=== PATIENT | female | born 1995 | race Caucasian/White ===

== ENCOUNTER 2019-09-17 08:28 | Emergency (ER) | payer OTHER, SELFPAY ==
[2019-09-17 08:55] VITALS: BP 142/86; PULSE 104; RESP 18; TEMP 36.9; O2SAT 98
--- NOTE | 2019-09-17 09:44 | ED.FEMALEGU ---
HPI - Female Genitourinary General Chief complaint: Urogenital-Female Stated complaint: . Time Seen by Provider: 09/17/19 09:45 Source: patient Mode of arrival: ambulatory History of Present Illness HPI Narrative: Patient presents with a 3-day history of low back pain urinary frequency and urgency-patient denies any gross hematuria denies any abdominal pain denies any flank pain. Patient denies any vaginal discharge and denies any concern for STDs. MD elicited complaint: dysuria and UTI Related Data Allergies Allergy/AdvReac Type Severity Reaction Status Date / Time labetalol Allergy Unknown Rash Verified 09/17/19 09:38 Sulfa (Sulfonamide Allergy Unknown Rash Verified 09/17/19 09:38 Antibiotics) Review of Systems Review of Systems: Narrative: CONSTITUTIONAL: Denies fever, chills, or sweats. EYES: Denies visual changes, redness, or discharge. ENT: Denies rhinorrhea, congestion, sore throat, or otalgia. CARDIOVASCULAR: Denies chest pain, palpitations, or edema. RESPIRATORY: Denies cough or dyspnea. GASTROINTESTINAL: Denies abdominal pain, nausea, vomiting, or diarrhea. GENITOURINARY: Denies hematuria. SKIN: Denies rash or itching. MUSCULOSKELETAL: Denies back pain, joint pain, or myalgia. NEUROLOGIC: Denies headache, numbness, or weakness. PSYCHIATRIC: Denies anxiety or depression. All systems reviewed & are unremarkable except as noted in HPI and below PMFSH Comments At time of signature, agree with nursing past medical, surgical, social and family history. There is no relevant family history pertinent to the presenting complaint Exam Narrative: Exam Narrative: GENERAL: Well-appearing, well-nourished, and in no acute distress. HEAD: Normocephalic, atraumatic. EYES: PERRLA and EOMI. ENT: Nares clear, no rhinorrhea or epistaxis. Mucous membranes moist. NECK: Supple. CHEST: Clear to auscultation. No respiratory distress. HEART: Regular rate and rhythm. No murmur heard. Normal peripheral pulses. ABDOMEN: Soft, nontender, nondistended, normal active bowel sounds. EXTREMITIES: Normal range of motion. No edema. SKIN: Warm, dry, no rash. NEURO: No focal deficits. Alert and oriented x3. [place] Coma Scale Eye Opening: Spontaneous 4 [place] Coma Scale Motor: Obeys Commands 6 [place] Com[place] Scale Verbal: Oriented 5 [place] Com[place] Scale Total 15 Course Vital Signs Vital signs: Vital Signs Temperature 36.9 C 09/17/19 08:55 Pulse Rate 104 H 09/17/19 08:55 Respiratory Rate 18 09/17/19 08:55 Blood Pressure 142/86 H 09/17/19 08:55 Pulse Oximetry 98 09/17/19 08:55 Temperature 36.9 C 09/17/19 08:55 Pulse Rate 104 H 09/17/19 08:55 Respiratory Rate 18 09/17/19 08:55 Blood Pressure 142/86 H 09/17/19 08:55 Pulse Oximetry 98 09/17/19 08:55 Please KATHERINE schedule a followup visit with your personal physician for further evaluation and treatment. Including recheck and discussion of your blood pressure. If your symptoms persist, change or worsen significantly before you can contact your personal physician then please, without delay, go to the emergency department for further evaluation MDM - Female Genitourinary Lab Data Attestation: I reviewed the patient's lab results. Labs: Urine Glucose Negative Reference Range: Negative Urine Bilirubin Negative Reference Range: Negative Urine Ketone Negative Reference Range: Negative Urine Specific [place] 1.030 Reference Range:1.001-1.035 Urine Blood 2+ Reference Range: Negative * * Urine pH 5.5 Reference Range: 5.0-9.0 Urine Protein 1+ Reference Range: Negative Urine Urobilinogen 0.2 Reference Range: 0.2-1.0 Urine Nitrate Negative Reference Range: Negative Urine L
== END 2019-09-17 10:09 | disposition home or self-care (01) ==
PROVIDERS: Emergency Provider Nurse Practitioner Family
DX: N30.00 Acute cystitis without hematuria (principal)
CPT/HCPCS: 81003; 87077; 87086; 87088; 87186; 99213; G0463

== ENCOUNTER 2019-11-19 11:09 | Emergency (ER) | payer OTHER, SELFPAY ==
[2019-11-19 11:30] VITALS: BP 140/88; PULSE 95; RESP 18; TEMP 36.8; O2SAT 98
--- NOTE | 2019-11-19 11:56 | ED.URI ---
HPI - URI/Sore Throat General Chief Complaint: Upper Respiratory Infection Stated Complaint: sore throat Time Seen by Provider: 11/19/19 11:47 Source: patient and RN notes reviewed Mode of arrival: ambulatory Limitations: no limitations History of Present Illness HPI Narrative: Patient presents today complaint of a 3-day history of sore throat, itchy and watery eyes, postnasal drip, and sneezing. She currently rates her pain 3/10 and has been taking Tylenol and occasionally Benadryl with some relief. Reports she does have seasonal allergies and has been spending a lot of time outside recently. MD elicited complaint: sore throat Related Data Allergies Allergy/AdvReac Type Severity Reaction Status Date / Time labetalol Allergy Unknown Rash Verified 11/19/19 11:35 Sulfa (Sulfonamide Allergy Unknown Rash Verified 11/19/19 11:35 Antibiotics) Review of Systems Review of Systems: Narrative: CONSTITUTIONAL: Denies body aches, fever, chills, or sweats. EYES: Denies visual changes, redness, or discharge.Itchy, watery eyes ENT: Denies rhinorrhea, or otalgia.+Congestion, sore throat, postnasal drip CARDIOVASCULAR: Denies chest pain, palpitations, or edema. RESPIRATORY: Denies cough or dyspnea. GASTROINTESTINAL: Denies abdominal pain, nausea, vomiting, or diarrhea. GENITOURINARY: Denies dysuria or hematuria. SKIN: Denies rash, itching, or wounds. MUSCULOSKELETAL: Denies back pain, joint pain, or myalgia. NEUROLOGIC: Denies headache, numbness, tingling, or weakness. PSYCH: Denies depression or anxiety. PMFSH Comments At time of signature, I have reviewed and agree with nursing past medical, surgical, social and family history unless otherwise noted. Please see nursing chart for further information. There is no relevant family history pertinent to the presenting complaint Exam Narrative: Exam Narrative: GENERAL: Well-appearing, well-nourished, and in no acute distress. HEAD: Normocephalic, atraumatic. EYES: EOMI. No redness or drainage. Conjunctivae normal. ENT: Mucous membranes pink and moist. Nares clear. No rhinorrhea. TMs normal bilaterally. Throat Mildly erythematous with white exudate on the left tonsil. Uvula midline. NECK: Normal AROM. Supple. No lymphadenopathy. CHEST: No respiratory distress. Clear to auscultation. HEART: Regular rate and rhythm. No murmur appreciated. Normal peripheral pulses. EXTREMITIES: Normal range of motion. No edema. SKIN: Warm, dry, no rash. Capillary refill normal. Normal skin turgor. NEURO: No focal deficits. Alert and oriented x3. Gait steady. PSYCH: Normal affect. No signs of depression or anxiety. Course Vital Signs Vital signs: Vital Signs Temperature 98.2 F 11/19/19 11:30 Pulse Rate 95 11/19/19 11:30 Respiratory Rate 18 11/19/19 11:30 Blood Pressure 140/88 11/19/19 11:30 Pulse Oximetry 98 11/19/19 11:30 Temperature 98.2 F 11/19/19 11:30 Pulse Rate 95 11/19/19 11:30 Respiratory Rate 18 11/19/19 11:30 Blood Pressure 140/88 11/19/19 11:30 Pulse Oximetry 98 11/19/19 11:30 Reviewed. Pt has been instructed to follow up with her PCP regarding her elevated blood pressure today. MDM - URI/Sore Throat Differential Diagnosis Differential diagnosis: Likely upper respiratory infection, sinusitis, viral infection, pharyngitis and other (Allergic rhinitis, strep throat) Lab Data Attestation: I reviewed the patient's lab results. Labs: Strep Screen Presumptive Negative *(Reference Range: Negative)* Critical Care Time Critical Care Time Critical Care Time: No Discharge Plan Discharge Clinical Impression: Acute seasonal allergic rhinitis Pharyngitis Qualifiers: Pharyngitis/tonsillitis etiology: unspecified etiology Qualified Code(s): J02.9 - Acute pharyngitis, unspecified Patient Disposition: Home, Self-Care Condition: Stable Instructions: Allergic Rhinitis (DC), Allergies (ED) Additional Instructio
== END 2019-11-19 12:00 | disposition home or self-care (01) ==
PROVIDERS: Emergency Provider Nurse Practitioner; PCP Internal Medicine Infectious Disease
DX: J30.9 Allergic rhinitis, unspecified (principal)
CPT/HCPCS: 87081; 87880; 99213; G0463

== ENCOUNTER 2020-01-13 18:57 | Emergency (ER) | payer OTHER, SELFPAY ==
[2020-01-13 19:08] VITALS: BP 124/87; PULSE 82; RESP 14; TEMP 36.7; O2SAT 100
--- NOTE | 2020-01-13 19:09 | ED.DENTAL ---
HPI - Dental/Oral General Chief complaint: Dental/Oral Stated complaint: Jaw pain Time Seen by Provider: 01/13/20 19:09 Source: patient and RN notes reviewed History of Present Illness HPI Narrative: Patient is a 24-year-old female that presents the urgent care with complaints of bilateral jaw pain. Patient states that it started last week. Patient states she does have a chronic habit of doing a lot of chewy candy and gum. Patient states that she has tried to lay off and also been using Tylenol and ibuprofen for the pain. However patient states is been so bad the last couple days that she has having difficulty eating. No other acute complaints. Denies any known injury or trauma. No acute distress noted. Patient read the plan of care. Related Data Home Medications Medication Instructions Recorded Confirmed albuterol sulfate 2 puff INHALATION QID PRN 01/13/20 01/13/20 alprazolam 0.25 mg PO TID PRN 01/13/20 01/13/20 bupropion HCl 75 mg PO DAILY 01/13/20 01/13/20 valacyclovir 500 mg PO DAILY 01/13/20 01/13/20 Allergies Allergy/AdvReac Type Severity Reaction Status Date / Time labetalol Allergy Unknown Rash Verified 01/13/20 19:14 Sulfa (Sulfonamide Allergy Unknown Rash Verified 01/13/20 19:14 Antibiotics) Review of Systems Review of Systems: Narrative: CONSTITUTIONAL: Denies fever, chills, or sweats. EYES: Denies visual changes, redness, or discharge. ENT: Denies rhinorrhea, congestion, sore throat, or otalgia. Reports of bilateral jaw pain CARDIOVASCULAR: Denies chest pain, palpitations, or edema. RESPIRATORY: Denies cough or dyspnea. GASTROINTESTINAL: Denies abdominal pain, nausea, vomiting, or diarrhea. GENITOURINARY: Denies dysuria or hematuria. SKIN: Denies rash or itching. MUSCULOSKELETAL: Denies back pain, joint pain, or myalgia. NEUROLOGIC: Denies headache, numbness, or weakness. All other systems reviewed are negative, except as documented in HPI. PMFSH Comments At the time of my signature, I reviewed and agree with the nursing past medical, surgical, social, and family history. There is no relevant family history pertinent to the patient complaint. Exam Narrative: Exam Narrative: GENERAL: This is a well-nourished, well-developed patient, in no apparent distress. HEAD: normocephalic, atraumatic. EYES: PERRL. Sclera clear/white. Vision is grossly intact. EARS: External ears normal, auditory canals clear and without drainage, TMs normal without perforation. Hearing grossly intact. NOSE: External nose normal with no obvious nasal discharge, nares without redness, no rhinorrhea. THROAT: Mucous membranes moist, posterior pharynx clear. Moderate tenderness to bilateral TMJ joints with some slight snapping to the right and extreme discomfort with opening and closing NECK: Neck supple, non-tender without lymphadenopathy SKIN: warm, intact with no suspicious lesions or rash, good texture and turgor. NEURO: awake, alert, and oriented to person, place and time. There were no obvious focal neurologic abnormalities. EXTREMITIES: No clubbing, cyanosis, or edema. Course Vital Signs Vital signs: Vital Signs Temperature 98.0 F 01/13/20 19:08 Pulse Rate 82 01/13/20 19:08 Respiratory Rate 14 01/13/20 19:08 Blood Pressure 124/87 01/13/20 19:08 Pulse Oximetry 100 01/13/20 19:08 Temperature 98.0 F 01/13/20 19:08 Pulse Rate 82 01/13/20 19:08 Respiratory Rate 14 01/13/20 19:08 Blood Pressure 124/87 01/13/20 19:08 Pulse Oximetry 100 01/13/20 19:08 Reviewed MDM - Dental/Oral MDM Narrative Medical decision making narrative: Spoke to the patient regarding clenching and grinding at night. That may be what is causing her issues and she may have a mild to moderate case of TMJ. Patient may obtain an mouthguard [id number] to help with the clenching or grinding at night. Complete steroid regimen as prescribed to reduce inflammation in the joint. May use ice to the jaw for comfort. Use
== END 2020-01-13 19:32 | disposition home or self-care (01) ==
PROVIDERS: Emergency Provider Nurse Practitioner Family; PCP Internal Medicine Infectious Disease
DX: M26.603 Bilateral temporomandibular joint disorder, unspecified (principal); J45.909 Unspecified asthma, uncomplicated; F41.9 Anxiety disorder, unspecified; F32.9 Major depressive disorder, single episode, unspecified
CPT/HCPCS: 99213; G0463

== ENCOUNTER 2020-03-11 17:55 | Emergency (ER) | payer OTHER, SELFPAY ==
[2020-03-11 18:00] VITALS: BP 132/79; PULSE 97; RESP 18; TEMP 37.8; O2SAT 99
--- NOTE | 2020-03-11 18:08 | ED.GENADULT ---
HPI - General Adult General Chief complaint: Upper Respiratory Infection Stated complaint: sore throat Time Seen by Provider: 03/11/20 18:13 Source: patient and RN notes reviewed Mode of arrival: ambulatory Limitations: no limitations History of Present Illness HPI narrative: This is a 24 years old female presents to the office for an evaluation of sore throat today. Associated with stuffy nose. Denies fever. 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 She took ibuprofen about a couple hours ago. Related Data Home Medications Medication Instructions Recorded Confirmed bupropion HCl 75 mg PO DAILY 01/13/20 01/13/20 valacyclovir 500 mg PO DAILY 01/13/20 01/13/20 Allergies Allergy/AdvReac Type Severity Reaction Status Date / Time labetalol Allergy Unknown Rash Verified 03/11/20 18:15 Sulfa (Sulfonamide Allergy Unknown Rash Verified 03/11/20 18:15 Antibiotics) Review of Systems Review of Systems: Narrative: CONSTITUTIONAL: Denies fever, chills, sweats. EYES: Denies visual changes, redness, discharge. ENT: Denies rhinorrhea, congestion,otalgia. CARDIOVASCULAR: Denies chest pain, palpitation, edema. RESPIRATORY: Denies dyspnea, wheezing, cough GASTROINTESTINAL: Denies abdominal pain, nausea, vomiting, diarrhea. SKIN: Denies rash MUSCULOSKELETAL: Denies acute back pain NEUROLOGIC: Denies lightheaded All other systems reviewed are negative, except as documented in HPI. [facility] Past Medical History Medical History (Updated 03/11/20 @ 18:30 by JAHAIRA Hess) Anxiety and depression Asthma Herpes simplex Comments At time of signature, I agree with nursing past medical, surgical, social and family history. There is no relevant family history pertinent to the presenting complaint. Exam Narrative: Exam Narrative: GENERAL: This is a well-nourished, well-developed patient, in no apparent distress. EARS: External ears normal, auditory canals clear and without drainage, TMs normal without perforation. Hearing grossly intact. NOSE: External nose normal with no obvious nasal discharge, nares without redness, no rhinorrhea. THROAT: Mucous membranes moist, posterior pharynx normal. NECK: Neck supple, non-tender without lymphadenopathy, masses or thyromegaly. CARDIOVASCULAR: Regular rate and rhythm without murmurs, gallops, or rubs. RESPIRATORY: Clear to auscultation. Breath sounds equal bilaterally. No wheezes, rales, or rhonchi. GASTROINTESTINAL: Abdomen soft, non-tender, nondistended. Bowel sounds are active. No hepato-splenomegaly, or palpable masses. No guarding. SKIN: warm, intact with no suspicious lesions or rash, good texture and turgor. NEURO: awake, alert, and oriented to person, place and time. There were no obvious focal neurologic abnormalities. Steady gait [place] Coma Scale Eye Opening: Spontaneous 4 [place] Coma Scale Motor: Obeys Commands 6 [place] Coma Scale Verbal: Oriented 5 Course Vital Signs Vital signs: Vital Signs Temperature 100.0 F H 03/11/20 18:00 Pulse Rate 97 03/11/20 18:00 Respiratory Rate 18 03/11/20 18:00 Blood Pressure 132/79 03/11/20 18:00 Pulse Oximetry 99 03/11/20 18:00 Temperature 100.0 F H 03/11/20 18:00 Pulse Rate 97 03/11/20 18:00 Respiratory Rate 18 03/11/20 18:00 Blood Pressure 132/79 03/11/20 18:00 Pulse Oximetry 99 03/11/20 18:00 Medical Decision Making MDM Narrative Medical decision making narrative: I reviewed 1st strep test result with the patient which was negative. Patient claims that the nurse did not swap throat well and request a second test; which I swap her again. Second rapid strep is still negative; I reviewed patient. Discharge instructions reviewed with patient, as well as provided in writing per nursing staff. The instructions also include specific and strict return/GO TO THE ER as well as f/u information. All questions have been answered, and the patient deny any further questions with discharge an
== END 2020-03-11 18:48 | disposition home or self-care (01) ==
PROVIDERS: Emergency Provider Nurse Practitioner; PCP Internal Medicine Infectious Disease
DX: J02.9 Acute pharyngitis, unspecified (principal); J45.909 Unspecified asthma, uncomplicated; F32.9 Major depressive disorder, single episode, unspecified
CPT/HCPCS: 87081; 87880; 99213; G0463

== ENCOUNTER 2020-04-28 14:02 | Emergency (ER) | payer OTHER, SELFPAY ==
--- NOTE | 2020-04-28 14:08 | ED.GENADULT ---
HPI - General Adult General Chief complaint: Ear Stated complaint: jaw pain popping ears Time Seen by Provider: 04/28/20 14:20 Source: patient Mode of arrival: ambulatory Limitations: no limitations History of Present Illness HPI narrative: 24-year-old female patient presents to the [facility] with complaints of right-sided jaw pain. Patient states that the jaw pain started this morning. Patient states she has had this jaw pain before in the past and she associated with possibly a side effect of her depression medication. Patient states after she went off her depression medication the jaw pain went away. Patient states she recently started the depression medication back up after talking to her doctor about side effects which her doctor assured her that this was not a side effect of medication. Patient states she continues to have right-sided jaw pain. Patient states that the jaw pain typically occurs worse when she is opening her mouth, try to make funny faces, chewing. Patient states she has taken some ibuprofen for it. Patient denies any dental pain. Patient states she does have a little bit of pain that also radiates to the right ear. Patient states she is currently taking [id number] antihistamines and Flonase for sinuses. Related Data Home Medications Medication Instructions Recorded Confirmed bupropion HCl 75 mg PO DAILY 01/13/20 03/11/20 valacyclovir 500 mg PO DAILY 01/13/20 03/11/20 albuterol sulfate 2 puff INHALATION QID PRN 04/28/20 04/28/20 alprazolam 0.25 mg PO TID PRN 04/28/20 04/28/20 amoxicillin-pot clavulanate 1 tablet PO Q12H 04/28/20 04/28/20 [Augmentin] Allergies Allergy/AdvReac Type Severity Reaction Status Date / Time labetalol Allergy Unknown Rash Verified 04/28/20 14:21 Sulfa (Sulfonamide Allergy Unknown Rash Verified 04/28/20 14:21 Antibiotics) Review of Systems Review of Systems: Narrative: CONSTITUTIONAL: Denies fever, chills, or sweats. EYES: Denies visual changes, redness, or discharge. ENT: Denies rhinorrhea, congestion, sore throat, or otalgia. Positive right-sided jaw pain CARDIOVASCULAR: Denies chest pain, palpitations, or edema. RESPIRATORY: Denies cough or dyspnea. GASTROINTESTINAL: Denies abdominal pain, nausea, vomiting, or diarrhea. GENITOURINARY: Denies dysuria or hematuria. SKIN: Denies rash or itching. MUSCULOSKELETAL: Denies back pain, joint pain, or myalgia. NEUROLOGIC: Denies headache, numbness, or weakness. PSYCHIATRIC: Denies anxiety or depression. [facility] Past Medical History Medical History Anxiety and depression Asthma Herpes simplex Comments At the time of my signature I agree with nursing past medical history, surgical, social, and family history. There is no relevant family history pertinent to the presenting complaint. Exam Narrative: Exam Narrative: GENERAL: Well-appearing, well-nourished, and in no acute distress. HEAD: Normocephalic, atraumatic. EYES: PERRLA and EOMI. ENT: Nares clear, no rhinorrhea or epistaxis. Mucous membranes moist. Bilateral TMs do have a little bit of fluid behind them but no erythema, no bulging. No foreign bodies in the canal. Posterior pharynx with no erythema, tonsillectomy, exudates or lesions present. No obvious dental infections or dental caries noted to the oral cavity. Patient does have a little bit of popping noted to bilateral sides of the jaw with movement. No warmth noted to the right side of the TM joint. Patient has good range of motion with the mouth and jaw. NECK: Supple. No lymphadenopathy CHEST: Clear to auscultation. No respiratory distress. HEART: Regular rate and rhythm. No murmur heard. Normal peripheral pulses. ABDOMEN: Soft, nontender, nondistended, normal active bowel sounds. EXTREMITIES: Normal range of motion. No edema. SKIN: Warm, dry, no rash. NEURO: No focal deficits. Alert and oriented x3. Course Vital Signs Vital signs: Vital
[2020-04-28 14:12] VITALS: BP 130/88; PULSE 91; RESP 16; TEMP 37.3; O2SAT 98
== END 2020-04-28 14:37 | disposition home or self-care (01) ==
PROVIDERS: Emergency Provider Nurse Practitioner Family; PCP Internal Medicine Infectious Disease
DX: M26.623 Arthralgia of bilateral temporomandibular joint (principal); H73.893 Other specified disorders of tympanic membrane, bilateral; J45.909 Unspecified asthma, uncomplicated; F41.9 Anxiety disorder, unspecified; F32.9 Major depressive disorder, single episode, unspecified
CPT/HCPCS: 99211; G0463

== ENCOUNTER 2021-01-24 19:27 | Emergency (ER) | payer OTHER, SELFPAY ==
[2021-01-24 19:33] VITALS: BP 128/69; PULSE 79; RESP 16; TEMP 37.3; O2SAT 100
[2021-01-24 19:45] VITALS: BP 128/69; PULSE 79; RESP 16; TEMP 37.3; O2SAT 100
--- NOTE | 2021-01-24 19:49 | ED.GENADULT ---
HPI - General Adult General Chief complaint: Upper Respiratory Infection Stated complaint: Sore Throat Time Seen by Provider: 01/24/21 19:50 Source: patient and RN notes reviewed Mode of arrival: ambulatory Limitations: no limitations History of Present Illness HPI narrative: 25-year-old female presents with complaints of sore throat for the past 7 days. Senia reports constant sore throat after other upper respiratory symptoms subsided. Tylenol and allergy medication without relief. No high fevers, drooling, neck or throat swelling. Pain is bilateral. Hurts to swallow. Exacerbation factors consist of eating and drinking. Rhinorrhea and nasal congestion. No cough or chest congestion. No voice change. No nausea, vomiting, or abdominal pain. Tolerating liquids well. Denies dyspnea, difficulty swallowing, jaw pain, dental pain, facial pain, foreign body sensation, and rash. LMP 01/13/2021. Remains active. The patient reports she was diagnosed with COVID-19 in May 2020. The patient reports she is not waiting for the results of a COVID-19 lab test. The patient reports she does not have chills, weakness, or fatigue. Denies chest pain. The patient reports she does not have any loss of taste or smell, and diarrhea. Tolerating po intake well. Denies recent traveling. Denies concerns for COVID-19 or exposures. At this time, the patient is not suspected of having COVID-19. Some parts of this dictation were generated by voice recognition software and may contain typographical and/or grammatical inaccuracies. Related Data Home Medications Medication Instructions Recorded Confirmed bupropion HCl 75 mg PO DAILY 01/13/20 01/24/21 valacyclovir 500 mg PO DAILY 01/13/20 01/24/21 albuterol sulfate 2 puff INHALATION QID PRN 04/28/20 01/24/21 alprazolam 0.25 mg PO TID PRN 04/28/20 01/24/21 topiramate 25 mg PO BID PRN 01/24/21 01/24/21 Allergies Allergy/AdvReac Type Severity Reaction Status Date / Time labetalol Allergy Unknown Rash Verified 01/24/21 19:36 Sulfa (Sulfonamide Allergy Unknown Rash Verified 01/24/21 19:36 Antibiotics) Review of Systems Review of Systems: Narrative: CONSTITUTIONAL: Denies fever, chills, sweats. EYES: Denies visual changes, redness, discharge. ENT: Denies otalgia. Complains of rhinorrhea, sore throat, congestion. CARDIOVASCULAR: Denies chest pain, palpitations, edema. RESPIRATORY: Denies dyspnea, wheezing, cough. GASTROINTESTINAL: Denies abdominal pain, nausea, vomiting, diarrhea. SKIN: Denies rash or itching. MUSCULOSKELETAL: Denies acute back pain, joint pain, or myalgia. NEUROLOGIC: Denies numbness or focal weakness. PSYCHIATRIC: Denies anxiety or depression. All systems reviewed & are unremarkable except as noted in HPI and below. [facility] Past Medical History Medical History (Updated 01/25/21 @ 00:00 by Saul Bhatt) Anxiety and depression Asthma Herpes simplex Surgical History Surgical History (Updated 01/29/21 @ 01:10 by JAHAIRA Fine) No significant past surgical history Family History Family History (Updated 01/29/21 @ 01:11 by JAHAIRA Fine) Father Hypertension Mother Alive and well Social History Social History (Updated 01/29/21 @ 01:11 by JAHAIRA Fine) Smoking status: Never smoker Tobacco type: cigarettes Second hand tobacco smoke exposure: No Alcohol intake: current Substance use: current Substance use type: marijuana Living arrangements: with family Occupation/Education: occupation Gender identity (if verbalized by the patient): Female Sexual Orientation (if Verbalized by the Patient): Straight or Heterosexual Comments At time of signature, agree with the nurse past medical, surgical, social, and family history. There is no relevant family history pertinent to the presenting complaint. Exam Narrative: Exam Narrative: GENERAL: This is a well-nourished, well-developed patient, in no apparen
== END 2021-01-24 20:05 | disposition home or self-care (01) ==
PROVIDERS: Emergency Provider Nurse Practitioner Family; PCP Internal Medicine Infectious Disease
DX: J02.9 Acute pharyngitis, unspecified (principal); J45.909 Unspecified asthma, uncomplicated; F41.9 Anxiety disorder, unspecified; F32.9 Major depressive disorder, single episode, unspecified
CPT/HCPCS: 87081; 87880; 99213; G0463

== ENCOUNTER 2021-02-06 11:02 | Emergency (ER) | payer OTHER, SELFPAY ==
--- NOTE | 2021-02-06 11:07 | ED.GENADULT ---
HPI - General Adult General Chief complaint: Skin/Abscess/Foreign Body Stated complaint: lump under armpit Time Seen by Provider: 02/06/21 11:07 Source: patient Mode of arrival: ambulatory Limitations: no limitations History of Present Illness HPI narrative: 25-year-old female patient presents to the [facility] the [facility] with complaints of an abscess to the left axilla for the past month. Patient states she was put on steroids for sore throat and it did go away however has been starting to come back about 3 days now. Patient states it is tender to the touch and warm. Denies any fevers, body aches or chills. Related Data Home Medications Medication Instructions Recorded Confirmed bupropion HCl 75 mg PO DAILY 01/13/20 01/24/21 valacyclovir 500 mg PO DAILY 01/13/20 01/24/21 albuterol sulfate 2 puff INHALATION QID PRN 04/28/20 01/24/21 alprazolam 0.25 mg PO TID PRN 04/28/20 01/24/21 topiramate 25 mg PO BID PRN 01/24/21 01/24/21 Allergies Allergy/AdvReac Type Severity Reaction Status Date / Time labetalol Allergy Unknown Rash Verified 01/24/21 19:36 Sulfa (Sulfonamide Allergy Unknown Rash Verified 01/24/21 19:36 Antibiotics) Review of Systems Review of Systems: Narrative: CONSTITUTIONAL: Denies fever, chills, or sweats. EYES: Denies visual changes, redness, or discharge. ENT: Denies rhinorrhea, congestion, sore throat, or otalgia. CARDIOVASCULAR: Denies chest pain, palpitations, or edema. RESPIRATORY: Denies cough or dyspnea. GASTROINTESTINAL: Denies abdominal pain, nausea, vomiting, or diarrhea. GENITOURINARY: Denies dysuria or hematuria. SKIN: Denies rash or itching. Positive left abscess under axilla MUSCULOSKELETAL: Denies back pain, joint pain, or myalgia. NEUROLOGIC: Denies headache, numbness, or weakness. PSYCHIATRIC: Denies anxiety or depression. REPLACED BY [facility] Past Medical History Medical History Anxiety and depression Asthma Herpes simplex Surgical History Surgical History No significant past surgical history Family History Family History Father Hypertension Mother Alive and well Social History Social History Smoking status: Never smoker Tobacco type: cigarettes Second hand tobacco smoke exposure: No Alcohol intake: current Substance use: current Substance use type: marijuana Gender identity (if verbalized by the patient): Female Comments At the time of my signature I agree with nursing past medical history, surgical, social, and family history. There is no relevant family history pertinent to the presenting complaint. Exam Narrative: Exam Narrative: GENERAL: Well-appearing, well-nourished, and in no acute distress. HEAD: Normocephalic, atraumatic. EYES: PERRLA and EOMI. ENT: Nares clear, no rhinorrhea or epistaxis. Mucous membranes moist. NECK: Supple. No lymphadenopathy CHEST: Clear to auscultation. No respiratory distress. HEART: Regular rate and rhythm. No murmur heard. Normal peripheral pulses. ABDOMEN: Soft, nontender, nondistended, normal active bowel sounds. EXTREMITIES: Normal range of motion. No edema. SKIN: Warm, dry, no rash. Patient has approximately 2.5 x 2.5 round axilla abscess to the left underarm. There is some warmth and area of erythema present. NEURO: No focal deficits. Alert and oriented x3. Course Vital Signs Vital signs: Vital Signs Temperature 36.7 C 02/06/21 11:11 Pulse Rate 86 02/06/21 11:11 Respiratory Rate 20 02/06/21 11:11 Blood Pressure 139/71 02/06/21 11:11 Pulse Oximetry 99 02/06/21 11:11 Temperature 36.7 C 02/06/21 11:14 Pulse Rate 86 02/06/21 11:14 Respiratory Rate 20 02/06/21 11:14 Blood Pressure 139/71 02/06/21 11:14 Pulse Oximetry 99 02/06/21 11:14 Vital signs reviewed Procedures Absc
[2021-02-06 11:11] VITALS: BP 139/71; PULSE 86; RESP 20; TEMP 36.7; O2SAT 99
[2021-02-06 11:14] VITALS: BP 139/71; PULSE 86; RESP 20; TEMP 36.7; O2SAT 99
== END 2021-02-06 12:00 | disposition home or self-care (01) ==
PROVIDERS: Emergency Provider Nurse Practitioner Family; PCP Internal Medicine Infectious Disease
DX: L02.412 Cutaneous abscess of left axilla (principal); F41.9 Anxiety disorder, unspecified; F32.9 Major depressive disorder, single episode, unspecified; J45.909 Unspecified asthma, uncomplicated
CPT/HCPCS: 10061; 87070; 87075; 87147; 87186; 87205; 99212; 99213; G0463

== ENCOUNTER 2021-03-05 11:44 | Emergency (ER) | payer OTHER, SELFPAY ==
[2021-03-05 12:00] VITALS: BP 113/60; PULSE 63; RESP 18; TEMP 37.1; O2SAT 98
--- NOTE | 2021-03-05 12:04 | ED.FEMALEGU ---
HPI - Female Genitourinary General Chief complaint: Urogenital-Female Stated complaint: poss uti Time Seen by Provider: 03/05/21 12:05 Source: patient and family History of Present Illness HPI Narrative: PATIENT PRESENTS WITH UTI SYMPTOMS. NO ABDOMINAL PAIN AND NO FLANK PAIN NO GROSS HEMATURIA NO VAGINAL DISCHARGE AND NO CONCERN FOR STI NO PELVIC PAIN. LOW BACK PAIN AND LOW ABDOMINAL PRESSURE WITH BURNING WITH URINATION. MD elicited complaint: dysuria and UTI Related Data Home Medications Medication Instructions Recorded Confirmed bupropion HCl 75 mg PO DAILY 01/13/20 03/05/21 valacyclovir 500 mg PO DAILY 01/13/20 03/05/21 albuterol sulfate 2 puff INHALATION QID PRN 04/28/20 03/05/21 alprazolam 0.25 mg PO TID PRN 04/28/20 03/05/21 topiramate 25 mg PO BID PRN 01/24/21 03/05/21 Allergies Allergy/AdvReac Type Severity Reaction Status Date / Time labetalol Allergy Unknown Rash Verified 03/05/21 12:01 Sulfa (Sulfonamide Allergy Unknown Rash Verified 03/05/21 12:01 Antibiotics) Review of Systems Review of Systems: Narrative: CONSTITUTIONAL: Denies fever, chills, or sweats. EYES: Denies visual changes, redness, or discharge. ENT: Denies rhinorrhea, congestion, sore throat, or otalgia. CARDIOVASCULAR: Denies chest pain, palpitations, or edema. RESPIRATORY: Denies cough or dyspnea. GASTROINTESTINAL: Denies abdominal pain, nausea, vomiting, or diarrhea. GENITOURINARY: Denies dysuria or hematuria. SKIN: Denies rash or itching. MUSCULOSKELETAL: Denies back pain, joint pain, or myalgia. NEUROLOGIC: Denies headache, numbness, or weakness. PSYCHIATRIC: Denies anxiety or depression. [facility] Past Medical History Medical History Anxiety and depression Asthma Herpes simplex Surgical History Surgical History No significant past surgical history Family History Family History Father Hypertension Mother Alive and well Social History Social History (Reviewed 02/06/21 @ 11:07 by CHAO Thompson Smoking status: Never smoker Tobacco type: cigarettes Second hand tobacco smoke exposure: No Alcohol intake: current Substance use: current Substance use type: marijuana Gender identity (if verbalized by the patient): Female Comments At time of signature, agree with nursing past medical, surgical, social and family history. There is no relevant family history pertinent to the presenting complaint Exam Narrative: Exam Narrative: GENERAL: Well-appearing, well-nourished, and in no acute distress. HEAD: Normocephalic, atraumatic. EYES: PERRLA and EOMI. ENT: Nares clear, no rhinorrhea or epistaxis. Mucous membranes moist. NECK: Supple. CHEST: Clear to auscultation. No respiratory distress. HEART: Regular rate and rhythm. No murmur heard. Normal peripheral pulses. ABDOMEN: Soft, nontender, nondistended, normal active bowel sounds. EXTREMITIES: Normal range of motion. No edema. SKIN: Warm, dry, no rash. NEURO: No focal deficits. Alert and oriented x3. [place] Coma Scale Eye Opening: Spontaneous 4 [place] Coma Scale Motor: Obeys Commands 6 [place] Coma Scale Verbal: Oriented 5 [place]a Coma Scale Total 15 Course Vital Signs Vital signs: Vital Signs Temperature 37.1 C 03/05/21 12:00 Pulse Rate 63 03/05/21 12:00 Respiratory Rate 18 03/05/21 12:00 Blood Pressure 113/60 03/05/21 12:00 Pulse Oximetry 98 03/05/21 12:00 Temperature 37.1 C 03/05/21 12:00 Pulse Rate 63 03/05/21 12:00 Respiratory Rate 18 03/05/21 12:00 Blood Pressure 113/60 03/05/21 12:00 Pulse Oximetry 98 03/05/21 12:00 MDM - Female Genitourinary Differential Diagnosis Differential diagnosis: Likely urinary tract infection, bacterial vaginosis, trichomoniasis, cervicitis, ovarian cyst, vaginitis, ruptured ovarian cyst, cyst of Bartholi
== END 2021-03-05 12:20 | disposition home or self-care (01) ==
PROVIDERS: Emergency Provider Nurse Practitioner Family; PCP Internal Medicine Infectious Disease
DX: N39.0 Urinary tract infection, site not specified (principal); J45.909 Unspecified asthma, uncomplicated; F41.9 Anxiety disorder, unspecified; F32.9 Major depressive disorder, single episode, unspecified
CPT/HCPCS: 81003; 87077; 87086; 87088; 87186; 99213; G0463

== ENCOUNTER 2021-12-19 16:44 | Emergency (ER) | payer OTHER, SELFPAY ==
--- NOTE | 2021-12-19 16:52 | ED.SKABFB ---
HPI - Skin/Abscess/Foreign Bdy General Chief complaint: Skin/Abscess/Foreign Body Stated complaint: left big toe infection Time Seen by Provider: 12/19/21 16:52 Source: patient and RN notes reviewed History of Present Illness HPI narrative: Patient is a 26-year-old female who presents the urgent care with complaints of left great toe pain and swelling. Patient states that started approximately 1 week ago after she clipped her toenails. Patient states that she has been soaking in peroxide and placing Neosporin. Denies of any known fevers. No other acute complaints. Denies of any injury to the foot/toe. No acute distress. Patient aware of the plan of care. Some parts of this dictation were generated by voice recognition software and may contain typographical and/or grammatical inaccuracies. Related Data Home Medications Medication Instructions Recorded Confirmed valacyclovir 500 mg PO BID PRN 12/19/21 12/19/21 Allergies Allergy/AdvReac Type Severity Reaction Status Date / Time Sulfa (Sulfonamide Allergy Rash Verified 12/19/21 16:58 Antibiotics) Review of Systems Review of Systems: CONSTITUTIONAL: Denies fever, chills, or sweats. EYES: Denies visual changes, redness, or discharge. ENT: Denies rhinorrhea, congestion, sore throat, or otalgia. CARDIOVASCULAR: Denies chest pain, palpitations, or edema. RESPIRATORY: Denies cough or dyspnea. GASTROINTESTINAL: Denies abdominal pain, nausea, vomiting, or diarrhea. GENITOURINARY: Denies dysuria or hematuria. SKIN: Reports of pain, redness and drainage from the left great toenail MUSCULOSKELETAL: Denies back pain, joint pain, or myalgia. NEUROLOGIC: Denies headache, numbness, or weakness. All other systems reviewed are negative, except as documented in HPI. PMFSH Comments At the time of my signature, I reviewed and agree with the nursing past medical, surgical, social, and family history. There is no relevant family history pertinent to the patient complaint. Exam Narrative: GENERAL: This is a well-nourished, well-developed patient, in no apparent distress. HEAD: normocephalic, atraumatic. EYES: PERRL. Sclera clear/white. Vision is grossly intact. EARS: External ears normal NOSE: External nose normal with no obvious nasal discharge, nares without redness, no rhinorrhea. THROAT: Mucous membranes moist NECK: Neck supple CARDIOVASCULAR: Regular rate and rhythm without murmurs, gallops, or rubs. RESPIRATORY: Clear to auscultation. Breath sounds equal bilaterally. No wheezes, rales, or rhonchi. SKIN: Mild erythemic draining tender paronychia to the lateral aspect of the left great toe NEURO: awake, alert, and oriented to person, place and time. There were no obvious focal neurologic abnormalities. EXTREMITIES: Positive strong left pedal pulse with capillary refill less than 2 seconds. Course Course Level of Care: Express Care Visit Vital Signs Vital signs: Vital Signs Temperature 99.9 F H 12/19/21 16:54 Pulse Rate 110 H 12/19/21 16:54 Respiratory Rate 18 12/19/21 16:54 Blood Pressure 141/87 H 12/19/21 16:54 Pulse Oximetry 98 12/19/21 16:54 Temperature 99.9 F H 12/19/21 17:00 Pulse Rate 110 H 12/19/21 17:00 Respiratory Rate 18 12/19/21 17:00 Blood Pressure 141/87 H 12/19/21 17:00 Pulse Oximetry 98 12/19/21 17:00 Reviewed-patient is informed that they may have pre-hypertension or hypertension based on a blood pressure reading in the department. I recommend the patient call the primary care provider listed on their discharge instructions or a physician of their choice this week to arrange follow-up for further evaluation of possible pre-hypertension or hypertension. MDM - Skin/Abscess/Foreign Bdy MDM Narrative Medical decision making narrative: Advised the patient to soak the toe in plain Dial soap and water. Do not use any peroxide or alcohol. Use the prescription cream and complete the oral antibiotic regimen as prescribed. Be sure to
[2021-12-19 16:54] VITALS: BP 141/87; PULSE 110; RESP 18; TEMP 37.7; O2SAT 98
[2021-12-19 17:00] VITALS: BP 141/87; PULSE 110; RESP 18; TEMP 37.7; O2SAT 98
== END 2021-12-19 17:07 | disposition home or self-care (01) ==
PROVIDERS: Emergency Provider Nurse Practitioner Family; PCP Internal Medicine Infectious Disease
DX: L03.032 Cellulitis of left toe (principal)
CPT/HCPCS: 99213; G0463

== ENCOUNTER 2022-05-04 11:30 | Emergency (ER) | payer OTHER, SELFPAY ==
--- NOTE | 2022-05-04 11:31 | ED.FEMALEGU ---
HPI - Female Genitourinary General Chief complaint: Urogenital-Female Stated complaint: poss uti Time Seen by Provider: 05/04/22 11:31 Source: patient and RN notes reviewed History of Present Illness HPI Narrative: Patient is a 26-year-old female who presents the urgent care with complaints of possible UTI with urinary frequency/urgency/dysuria. Patient states she noted blood in her urine but just got off her menstrual cycle a couple days ago. Patient states symptoms started 2 days ago and she has been taking ibuprofen. Denies any abdominal pain or vomiting. Denies of any fever. No other acute complaints. No acute distress noted. Patient aware of the plan of care. Some parts of this dictation were generated by voice recognition software and may contain typographical and/or grammatical inaccuracies. Related Data Home Medications Medication Instructions Recorded Confirmed valacyclovir 500 mg tablet 500 mg PO DAILY 01/13/20 03/05/21 triamcinolone acetonide 0.1 % applic topical 05/04/22 topical cream Allergies Allergy/AdvReac Type Severity Reaction Status Date / Time labetalol Allergy Unknown Rash Verified 05/04/22 11:40 Sulfa (Sulfonamide Allergy Unknown Rash Verified 05/04/22 11:40 Antibiotics) Review of Systems Review of Systems: CONSTITUTIONAL: Denies fever, chills, or sweats. EYES: Denies visual changes, redness, or discharge. ENT: Denies rhinorrhea, congestion, sore throat, or otalgia. CARDIOVASCULAR: Denies chest pain, palpitations, or edema. RESPIRATORY: Denies cough or dyspnea. GASTROINTESTINAL: Denies abdominal pain, nausea, vomiting, or diarrhea. GENITOURINARY: Reports of urinary frequency, urgency, dysuria SKIN: Denies rash or itching. MUSCULOSKELETAL: Denies back pain, joint pain, or myalgia. NEUROLOGIC: Denies headache, numbness, or weakness. All other systems reviewed are negative, except as documented in HPI. [facility] Past Medical History Medical History Anxiety and depression Asthma Herpes simplex Surgical History Surgical History No significant past surgical history Family History Family History Father Hypertension Mother Alive and well Social History Social History Smoking status: Never smoker Tobacco type: cigarettes Second hand tobacco smoke exposure: No Alcohol intake: current Substance use: current Substance use type: marijuana Gender identity (if verbalized by the patient): Female Sexual Orientation (if Verbalized by the Patient): Straight or Heterosexual Comments At the time of my signature, I reviewed and agree with the nursing past medical, surgical, social, and family history. There is no relevant family history pertinent to the patient complaint. Exam Narrative: GENERAL: This is a well-nourished, well-developed patient, in no apparent distress. HEAD: normocephalic, atraumatic. EYES: PERRL. Sclera clear/white. Vision is grossly intact. EARS: External ears normal NOSE: External nose normal with no obvious nasal discharge, nares without redness, no rhinorrhea. THROAT: Mucous membranes moist NECK: Neck supple CARDIOVASCULAR: Regular rate and rhythm without murmurs, gallops, or rubs. RESPIRATORY: Clear to auscultation. Breath sounds equal bilaterally. No wheezes, rales, or rhonchi. GASTROINTESTINAL: Abdomen soft, non-tender, nondistended. SKIN: warm, intact with no suspicious lesions or rash, good texture and turgor. NEURO: awake, alert, and oriented to person, place and time. There were no obvious focal neurologic abnormalities. EXTREMITIES: No clubbing, cyanosis, or edema. BACK: Negative bilateral CVA tenderness Course Course Level of Care: Express Care Visit Vital Signs Vital signs: Vital Signs Temperature 98.1 F
[2022-05-04 11:34] VITALS: BP 113/68; PULSE 75; RESP 16; TEMP 36.7; O2SAT 99
== END 2022-05-04 12:05 | disposition home or self-care (01) ==
PROVIDERS: Emergency Provider Nurse Practitioner Family; PCP Internal Medicine Infectious Disease
DX: R35.0 Frequency of micturition (principal); J45.909 Unspecified asthma, uncomplicated
CPT/HCPCS: 81003; 87086; 99213; G0463

== ENCOUNTER 2022-06-19 18:52 | Emergency (ER) | payer OTHER, SELFPAY ==
--- NOTE | 2022-06-19 18:53 | ED.URI ---
HPI - URI/Sore Throat General Chief Complaint: Upper Respiratory Infection Stated Complaint: cough chills Time Seen by Provider: 06/19/22 19:20 Source: patient and RN notes reviewed Mode of arrival: ambulatory Limitations: no limitations History of Present Illness MD elicited complaint: cough and sore throat Related Data Home Medications Medication Instructions Recorded Confirmed valacyclovir 500 mg tablet 500 mg PO BID PRN Cold Sores 12/19/21 12/19/21 Allergies Allergy/AdvReac Type Severity Reaction Status Date / Time labetalol Allergy Unknown Rash Verified 06/01/22 08:35 Sulfa (Sulfonamide Allergy Rash Verified 06/01/22 08:35 Antibiotics) Review of Systems Review of Systems: CONSTITUTIONAL: Denies malaise, chills, sweats, or fever. EYES: Denies visual changes, redness, or discharge. ENT: Reports rhinorrhea, congestion, sinus pain, otalgia and sore throat. CARDIOVASCULAR: Denies chest pain, palpitations, or edema. RESPIRATORY: Reports cough. Denies dyspnea. GASTROINTESTINAL: Denies abdominal pain, nausea, vomiting, diarrhea SKIN: Denies rash or itching. MUSCULOSKELETAL: Denies myalgia. NEUROLOGIC: Denies headache. All systems reviewed & are unremarkable except as noted in HPI and below PMFSH Past Medical History Medical History (Updated 06/19/22 @ 19:27 by Haritha Redman NP) Anxiety and depression Asthma Herpes simplex Surgical History Surgical History (Updated 06/01/22 @ 08:35 by Jin Walters) No significant past surgical history Family History Family History (System 06/01/22 @ 08:35 by Jin Walters) Father Hypertension Mother Alive and well Social History Social History (System 06/01/22 @ 08:35 by Jin Walters) Smoking status: Never smoker Tobacco type: cigarettes Second hand tobacco smoke exposure: No Alcohol intake: current Substance use: current Substance use type: marijuana Gender identity (if verbalized by the patient): Female Sexual Orientation (if Verbalized by the Patient): Straight or Heterosexual Comments At time of signature, agree with nursing past medical, surgical, social and family history. There is no relevant family history pertinent to the presenting complaint Exam Narrative: GENERAL: Well-appearing, well-nourished, and in no acute distress. HEAD: Normocephalic EYES: PERRLA, conjunctivae clear ENT: Nares clear, turbinates edematous and erythematous, clear discharge. Mucous membranes moist. TM pearly fishman with dull light reflex bilaterally; no tragal tenderness. Oropharynx not erythematous without lesions. Tonsils not enlarged and without exudate, no drooling, no hoarseness, no trismus, uvula midline. NECK: Supple. No lymphadenopathy CHEST: Clear to auscultation, breath sounds equal. No wheezing, rhonchi, rales, or stridor. No respiratory distress, speaks in full sentences. HEART: Regular rate and rhythm. No murmur heard. SKIN: Warm, dry, no rash. NEURO: Alert and oriented x3. PSYCH: Normal mood and affect Course Course Emergency Course: Patient is aware of diagnosis, understands and agrees to treatment plan. Anticipatory guidance given. Patient agrees to follow-up as directed and is aware of reasons to seek care at the emergency department. Portions of this record may have been created with voice recognition software Level of Care: Express Care Visit Vital Signs Vital signs: Reviewed. MDM - URI/Sore Throat MDM Narrative Medical decision making narrative: Differential diagnosis considered: Gu virus, strep pharyngitis, allergic rhinitis, upper respiratory tract infection, sinusitis, rhinosinusitis, nasopharyngitis. viral pharyngitis, otitis media, otitis externa, pneumonia, bronchitis, viral cough syndrome, viral syndrome, and influenza. Exam findings show no acute concerns or changes; patient is non-toxic appearing and is in no distress. Patient is appropriate for outpatient treatment and follow-up. Lab Data Attestation: I reviewed
[2022-06-19 19:08] VITALS: BP 143/103; PULSE 125; RESP 20; TEMP 37.1; O2SAT 100
== END 2022-06-19 19:38 | disposition home or self-care (01) ==
PROVIDERS: Emergency Provider Nurse Practitioner; PCP Internal Medicine Infectious Disease
DX: J06.9 Acute upper respiratory infection, unspecified (principal); R05.9 Cough, unspecified; J45.909 Unspecified asthma, uncomplicated
CPT/HCPCS: 87804; 99213; G0463

== ENCOUNTER 2022-07-30 08:05 | Emergency (ER) | payer OTHER, SELFPAY ==
[2022-07-30 08:18] VITALS: BP 145/97; PULSE 103; RESP 14; TEMP 37; O2SAT 98
[2022-07-30 08:25] VITALS: BP 145/97; PULSE 103; RESP 14; TEMP 37; O2SAT 98
--- NOTE | 2022-07-30 08:39 | ED.GENADULT ---
HPI - General Adult General Chief complaint: Eye Problems Stated complaint: pink eye Source: patient Mode of arrival: ambulatory Limitations: no limitations History of Present Illness HPI narrative: Patient presents for evaluation of left eye irritation. Symptom onset yesterday. Reports some swelling of the eyelid, redness, tearing, thick mucopurulent discharge. She woke from sleep with her left eye crusted. No visual disturbance. She does wear glasses but does not use contacts. Related Data Home Medications Medication Instructions Recorded Confirmed valacyclovir 500 mg tablet 500 mg PO BID PRN Cold Sores 12/19/21 07/30/22 Allergies Allergy/AdvReac Type Severity Reaction Status Date / Time labetalol Allergy Unknown Rash Verified 07/30/22 08:23 Sulfa (Sulfonamide Allergy Rash Verified 07/30/22 08:23 Antibiotics) Review of Systems Review of Systems: CONSTITUTIONAL: Denies fever, chills, or sweats. EYES: Reports left eye redness, swelling of the eyelid, tearing, mucopurulent discharge. Denies visual disturbance. Denies sensation of foreign body in the eye ENT: Denies rhinorrhea, congestion, sore throat, or otalgia. CARDIOVASCULAR: Denies chest pain, palpitations, or edema. RESPIRATORY: Denies cough or dyspnea. GASTROINTESTINAL: Denies abdominal pain, nausea, vomiting, or diarrhea. GENITOURINARY: Denies dysuria or hematuria. SKIN: Denies rash or itching. MUSCULOSKELETAL: Denies back pain, joint pain, or myalgia. NEUROLOGIC: Denies headache, numbness, dizziness, or weakness. PSYCHIATRIC: Denies anxiety or depression. [facility] Past Medical History Medical History Anxiety and depression Asthma Herpes simplex Surgical History Surgical History No significant past surgical history Family History Family History (System 06/01/22 @ 08:35 by Jin Walters) Father Hypertension Mother Alive and well Social History Social History Smoking status: Never smoker Tobacco type: cigarettes Second hand tobacco smoke exposure: No Alcohol intake: current Substance use: current Substance use type: marijuana Gender identity (if verbalized by the patient): Female Sexual Orientation (if Verbalized by the Patient): Straight or Heterosexual Exam Narrative: GENERAL: Well-appearing, well-nourished, and in no acute distress. HEAD: Normocephalic, atraumatic. EYES: PERRLA and EOMI. Left conjunctival injection with some crusting noted to the lashes. ENT: Nares clear, no rhinorrhea or epistaxis. Mucous membranes moist. Oropharynx without tonsillar hypertrophy exudate or other lesions. Bilateral TMs pearly fishman nonbulging NECK: Supple. No adenopathy or masses. No carotid bruits or JVD CHEST: Clear to auscultation. No respiratory distress. No wheezes rales or rhonchi HEART: Regular rate and rhythm. No murmur heard. Normal peripheral pulses. ABDOMEN: Soft, nontender, nondistended, normal active bowel sounds. EXTREMITIES: Normal range of motion. No edema. SKIN: Warm, dry, no rash. NEURO: No focal deficits. Alert and oriented x3. PSYCH: Normal mood and affect. Course Course Emergency Course: This is a 27-year-old female who presented for evaluation of left eye irritation. Exam consistent with bacterial conjunctivitis. She does not have sensation of foreign body in the eye. Doubt corneal abrasion. Will DC with erythromycin. Follow up with primary. Go to ER for worsening symptoms. Pt in agreement with plan of care. Level of Care: Express Care Visit Vital Signs Vital signs: Vital Signs Temperature 37.0 C 07/30/22 08:18 Pulse Rate 103 H 07/30/22 08:18 Respiratory Rate 14 07/30/22 08:18 Blood Pressure 145/97 H 07/30/22 08:18 Pulse Oximetry 98 07/30/22 08:18 Oxygen Delivery Room Air 07/30/22 08:18 T
== END 2022-07-30 08:40 | disposition home or self-care (01) ==
PROVIDERS: Emergency Provider Nurse Practitioner; PCP Internal Medicine Infectious Disease
DX: H10.32 Unspecified acute conjunctivitis, left eye (principal); J45.909 Unspecified asthma, uncomplicated
CPT/HCPCS: 99213; G0463

== ENCOUNTER 2022-12-05 09:36 | Emergency (ER) | payer OTHER, SELFPAY ==
[2022-12-05 09:42] VITALS: BP 131/85; PULSE 103; RESP 16; TEMP 37.2; O2SAT 98
--- NOTE | 2022-12-05 10:04 | ED.URI ---
HPI - URI/Sore Throat General Chief Complaint: Upper Respiratory Infection Stated Complaint: Congestion Time Seen by Provider: 12/05/22 09:54 Source: patient and RN notes reviewed History of Present Illness HPI Narrative: Patient is a 27-year-old female who presents to urgent care with complaints of cough, nasal drainage, sore throat and congestion. Patient states that it started on Sunday when she had a low-grade fever of 100.7. Patient has been using Tylenol, ibuprofen, prescription cough medication and Benadryl. Patient warm states she is not concerned about strep throat. No other acute complaints. Denies any nausea or vomiting. No acute distress noted. Patient aware of the plan of care. Some parts of this dictation were generated by voice recognition software and may contain typographical and/or grammatical inaccuracies. Related Data Home Medications Medication Instructions Recorded Confirmed valacyclovir 500 mg tablet 500 mg PO DAILY 12/19/21 12/05/22 Allergies Allergy/AdvReac Type Severity Reaction Status Date / Time Sulfa (Sulfonamide Allergy Intermediate Rash Verified 12/05/22 10:00 Antibiotics) labetalol Allergy Unknown Rash Verified 12/05/22 10:00 Review of Systems Review of Systems: CONSTITUTIONAL: Denies fever, chills, or sweats. EYES: Denies visual changes, redness, or discharge. ENT: Reports of congestion, rhinorrhea, sore throat CARDIOVASCULAR: Denies chest pain, palpitations, or edema. RESPIRATORY: Reports of cough without dyspnea GASTROINTESTINAL: Denies abdominal pain, nausea, vomiting, or diarrhea. GENITOURINARY: Denies dysuria or hematuria. SKIN: Denies rash or itching. MUSCULOSKELETAL: Denies back pain, joint pain, or myalgia. NEUROLOGIC: Denies headache, numbness, or weakness. All other systems reviewed are negative, except as documented in HPI. [facility] Past Medical History Medical History Anxiety and depression Asthma Herpes simplex Surgical History Surgical History No significant past surgical history Family History Family History (System 06/01/22 @ 08:35 by Jin Walters) Father Hypertension Mother Alive and well Social History Social History Smoking status: Never smoker Tobacco type: cigarettes Second hand tobacco smoke exposure: No Alcohol intake: current Substance use: current Substance use type: marijuana Living arrangements: with family Occupation/Education: occupation Gender identity (if verbalized by the patient): Female Sexual Orientation (if Verbalized by the Patient): Straight or Heterosexual Comments At the time of my signature, I reviewed and agree with the nursing past medical, surgical, social, and family history. There is no relevant family history pertinent to the patient complaint. Exam Narrative: GENERAL: This is a well-nourished, well-developed patient, in no apparent distress. HEAD: normocephalic, atraumatic. EYES: PERRL. Sclera clear/white. Vision is grossly intact. EARS: External ears normal, auditory canals clear and without drainage, TMs normal without perforation. Hearing grossly intact. NOSE: External nose normal with no obvious nasal discharge, nares without redness, clear rhinorrhea. THROAT: Mucous membranes moist, posterior pharynx clear. Moderate clear nasal drainage NECK: Neck supple, CARDIOVASCULAR: Regular rate and rhythm without murmurs, gallops, or rubs. RESPIRATORY: Clear to auscultation. Breath sounds equal bilaterally. No wheezes, rales, or rhonchi. SKIN: warm, intact with no suspicious lesions or rash, good texture and turgor. NEURO: awake, alert, and oriented to person, place and time. There were no obvious focal neurologic abnormalities. EXTREMITIES: No clubbing, cyanosis, or edema. Course Course Level of Care: Laureen Parks
== END 2022-12-05 10:15 | disposition home or self-care (01) ==
PROVIDERS: Emergency Provider Nurse Practitioner Family; PCP Internal Medicine Infectious Disease
DX: J00 Acute nasopharyngitis [common cold] (principal); J45.909 Unspecified asthma, uncomplicated
CPT/HCPCS: 99213; G0463

== ENCOUNTER 2022-12-23 08:10 | Emergency (ER) | payer OTHER, SELFPAY ==
[2022-12-23 08:30] VITALS: BP 135/85; PULSE 79; RESP 16; TEMP 36.8; O2SAT 100
--- NOTE | 2022-12-23 08:46 | ED.EYEPROB ---
HPI - Eye Problem General Chief complaint: Eye Problems Stated complaint: pink eye History of Present Illness HPI Narrative: Patient presents with irritation to left eye in matted shut this morning. No vision problems does not wear contacts. Patient states her daughter had pinkeye last week and thinks she has given it to her at this time. Related Data Home Medications Medication Instructions Recorded Confirmed valacyclovir 500 mg tablet 500 mg PO DAILY 12/19/21 12/23/22 Allergies Allergy/AdvReac Type Severity Reaction Status Date / Time Sulfa (Sulfonamide Allergy Intermediate Rash Verified 12/23/22 08:44 Antibiotics) labetalol Allergy Unknown Rash Verified 12/23/22 08:44 Review of Systems Review of Systems: CONSTITUTIONAL: Denies fever, chills, or sweats. EYES: Denies visual changes, redness, or discharge. ENT: Denies rhinorrhea, congestion, sore throat, or otalgia. CARDIOVASCULAR: Denies chest pain, palpitations, or edema. RESPIRATORY: Denies cough or dyspnea. GASTROINTESTINAL: Denies abdominal pain, nausea, vomiting, or diarrhea. GENITOURINARY: Denies dysuria or hematuria. SKIN: Denies rash or itching. MUSCULOSKELETAL: Denies back pain, joint pain, or myalgia. NEUROLOGIC: Denies headache, numbness, or weakness. PSYCHIATRIC: Denies anxiety or depression. [facility] Past Medical History Medical History Anxiety and depression Asthma Herpes simplex Surgical History Surgical History No significant past surgical history Family History Family History (System 06/01/22 @ 08:35 by Jin Walters) Father Hypertension Mother Alive and well Social History Social History Smoking status: Never smoker Tobacco type: cigarettes Second hand tobacco smoke exposure: No Alcohol intake: current Substance use: current Substance use type: marijuana Living arrangements: with family Occupation/Education: occupation Gender identity (if verbalized by the patient): Female Sexual Orientation (if Verbalized by the Patient): Straight or Heterosexual Comments At time of signature, agree with nursing past medical, surgical, social and family history. There is no relevant family history pertinent to the presenting complaint Exam Narrative: GENERAL: Well-appearing, well-nourished, and in no acute distress. HEAD: Normocephalic, atraumatic. EYES: PERRLA and EOMI. Left eye conjunctiva injected mild amount of drainage pupil equal and reactive ENT: Nares clear, no rhinorrhea or epistaxis. Mucous membranes moist. NECK: Supple. CHEST: Clear to auscultation. No respiratory distress. HEART: Regular rate and rhythm. No murmur heard. Normal peripheral pulses. ABDOMEN: Soft, nontender, nondistended, normal active bowel sounds. EXTREMITIES: Normal range of motion. No edema. SKIN: Warm, dry, no rash. NEURO: No focal deficits. Alert and oriented x3. [place] Coma Scale Eye Opening: Spontaneous 4 [place] Coma Scale Motor: Obeys Commands 6 [place] Coma Scale Verbal: Oriented 5 [place] Coma Scale Total 15 Course Course Level of Care: Express Care Visit Vital Signs Vital signs: Vital Signs Temperature 36.8 C 12/23/22 08:30 Pulse Rate 79 12/23/22 08:30 Respiratory Rate 16 12/23/22 08:30 Blood Pressure 135/85 12/23/22 08:30 Pulse Oximetry 100 12/23/22 08:30 Oxygen Delivery Room Air 12/23/22 08:30 Temperature 36.8 C 12/23/22 08:30 Pulse Rate 79 12/23/22 08:30 Respiratory Rate 16 12/23/22 08:30 Blood Pressure 135/85 12/23/22 08:30 Pulse Oximetry 100 12/23/22 08:30 Oxygen Delivery Room Air 12/23/22 08:30 MDM - Eye Problem Differential Diagnosis Differential diagnosis: Likely corneal abrasion, conjunctivitis, acute iritis, hyphema, periorbital cellulitis, subconjunctival hemorr
== END 2022-12-23 08:52 | disposition home or self-care (01) ==
PROVIDERS: Emergency Provider Nurse Practitioner Family; PCP Internal Medicine Infectious Disease
DX: H10.9 Unspecified conjunctivitis (principal); F12.90 Cannabis use, unspecified, uncomplicated; J45.909 Unspecified asthma, uncomplicated
CPT/HCPCS: 99213; G0463

== ENCOUNTER 2022-12-30 12:45 | Emergency (ER) | payer OTHER, SELFPAY ==
[2022-12-30 13:00] VITALS: BP 129/85; PULSE 83; RESP 16; TEMP 36.8; O2SAT 100
--- NOTE | 2022-12-30 13:08 | ED.URI ---
HPI - URI/Sore Throat General Chief Complaint: Upper Respiratory Infection Stated Complaint: sore throat History of Present Illness HPI Narrative: PATIENT PRESENTS WITH A SORE THROAT NASAL CONGESTION COUGH. PATIENT NO TROUBLE SWALLOWING NO DROOLING. PATIENT IS CONCERNED THAT SHE MIGHT HAVE STREP THROAT. Related Data Home Medications Medication Instructions Recorded Confirmed valacyclovir 500 mg tablet 500 mg PO DAILY 12/19/21 12/23/22 fluticasone propionate 50 intranasal 12/30/22 mcg/actuation nasal spray,suspension Allergies Allergy/AdvReac Type Severity Reaction Status Date / Time Sulfa (Sulfonamide Allergy Intermediate Rash Verified 12/23/22 08:44 Antibiotics) labetalol Allergy Unknown Rash Verified 12/23/22 08:44 Review of Systems Review of Systems: CONSTITUTIONAL: DENIES CHILLS, OR SWEATS. REPORTS FEVER AND GENERALIZED BODY ACHES EYES: DENIES VISUAL CHANGES, REDNESS, OR DISCHARGE. ENT: DENIES OTALGIA. REPORTS NASAL CONGESTION RUNNY NOSE AND SORE THROAT CARDIOVASCULAR: DENIES CHEST PAIN, PALPITATIONS, OR EDEMA. RESPIRATORY: DENIES DYSPNEA. REPORTS OCCASIONAL COUGH GASTROINTESTINAL: DENIES ABDOMINAL PAIN, NAUSEA, VOMITING, OR DIARRHEA. GENITOURINARY: DENIES DYSURIA OR HEMATURIA. SKIN: DENIES RASH OR ITCHING. MUSCULOSKELETAL: DENIES BACK PAIN, JOINT PAIN, OR MYALGIA. REPORTS GENERALIZED BODY ACHES NEUROLOGIC: DENIES HEADACHE, NUMBNESS, OR WEAKNESS. PSYCHIATRIC: DENIES ANXIETY OR DEPRESSION. [facility] Past Medical History Medical History Anxiety and depression Asthma Herpes simplex Surgical History Surgical History No significant past surgical history Family History Family History (System 06/01/22 @ 08:35 by Jin Walters) Father Hypertension Mother Alive and well Social History Social History Smoking status: Never smoker Tobacco type: cigarettes Second hand tobacco smoke exposure: No Alcohol intake: current Substance use: current Substance use type: marijuana Living arrangements: with family Occupation/Education: occupation Gender identity (if verbalized by the patient): Female Sexual Orientation (if Verbalized by the Patient): Straight or Heterosexual Comments AT TIME OF SIGNATURE, AGREE WITH NURSING PAST MEDICAL, SURGICAL, SOCIAL AND FAMILY HISTORY. THERE IS NO RELEVANT FAMILY HISTORY PERTINENT TO THE PRESENTING COMPLAINT Exam Narrative: THE PATIENT IS A WELL-DEVELOPED, WELL-NOURISHED IN NO ACUTE DISTRESS. SKIN: SKIN IS WARM AND DRY WITHOUT ERYTHEMA, SWELLING OR EXUDATE. THERE IS GOOD TURGOR. NO TENTING. HEAD: ATRAUMATIC. NORMOCEPHALIC. NO TEMPORAL OR SCALP TENDERNESS. EYES: MOIST AND BRIGHT. SCLERA AND CONJUNCTIVAE NORMAL. NO DISCHARGE. PERRLA. EXTRAOCULAR MOTIONS INTACT. GROSS VISUAL ACUITY INTACT. EARS: PINNA IS NORMAL SHAPE AND CONTOUR. CLEAR EXTERNAL AUDITORY CANALS. TM PEARLY NIELSEN WITH GOOD CONE OF LIGHT, NO ERYTHEMA OR SUPPURATION. BILATERAL CERUMEN NOTED NO GROSS HEARING DEFICIT. NOSE: PINK, MOIST MUCOSA WITH GOOD AIR MOVEMENT. CLEAR RHINORRHEA WITHOUT NASAL FLARING. SEPTUM MIDLINE. MOUTH: MOIST MUCOUS MEMBRANES. THROAT; MILD ERYTHEMA NOTED TO POSTERIOR OROPHARYNX WITH MODERATE POSTNASAL DRAINAGE. WITHOUT EXUDATE OR ULCERATION.. UVULA MIDLINE. NORMAL MOVEMENT OF SOFT PALATE. NECK: SUPPLE AND NONTENDER WITH FULL RANGE OF MOTION WITHOUT DISCOMFORT. NO MENINGEAL SIGNS. LUNGS: EQUAL AND BILATERAL BREATH SOUNDS WITHOUT WHEEZES, RALES OR RHONCHI. CHEST: THE CHEST WALL IS WITHOUT RETRACTIONS OR USE OF ACCESSORY MUSCLES. HEART: HAS A REGULAR RATE AND RHYTHM WITHOUT MURMUR, GALLOPS, CLICK OR RUB. ABDOMEN: SOFT, NONTENDER WITH POSITIVE ACTIVE BOWEL SOUNDS. NO REBOUND TENDERNESS. EXTREMITIES: WITHOUT CYANOSIS, CLUBBING OR EDEMA. EQUAL 2+ DISTAL PULSES AND 2 SECOND CAPILLARY REFILL
== END 2022-12-30 13:14 | disposition home or self-care (01) ==
PROVIDERS: Emergency Provider Nurse Practitioner Family; PCP Internal Medicine Infectious Disease
DX: J06.9 Acute upper respiratory infection, unspecified (principal); J02.9 Acute pharyngitis, unspecified; J45.909 Unspecified asthma, uncomplicated
CPT/HCPCS: 87081; 87880; 99213; G0463